=== PATIENT | female | born 1970 | race Two or more races ===

== ENCOUNTER → 2024-05-15 | Outpatient (CLI) | payer MEDICARE, MEDICAID, SELFPAY ==
--- NOTE | 2024-05-15 11:15 | XR_ITS ---
Examination: Breast ultrasound, unilateral, right Date and time of exam: May 15, thousand 25 at 1159 hours INDICATIONS: Sharp right breast pain beginning in the nipple region and extending to the chest wall noticed beginning 6 months ago Technique: Real-time rust scale ultrasonographic imaging performed right breast including all 4 quadrants as well as nipple retroareolar and axillary region. Findings: No cystic or solid masses IMPRESSION: BI-RADS Category 1: Negative study
== END | disposition home or self-care (01) ==
PROVIDERS: PCP Physician Assistant; Referring Provider Physician Assistant; Visit Provider Physician Assistant
DX: N64.4 Mastodynia (principal)
CPT/HCPCS: 76641

== ENCOUNTER → 2024-05-30 | Outpatient (CLI) | payer MEDICARE, MEDICAID, SELFPAY ==
--- NOTE | 2024-05-30 09:15 | XR_ITS ---
Examination: Diagnostic digital mammography, unilateral, right Computer aided detection 3-D breast Tomosynthesis, unilateral Date and time of exam: May 30, 2024 0911 hours INDICATIONS: Outside mammogram 02/07/2024 2 cm focal asymmetry lower outer quadrant right breast Technique: Nonmagnified MLO, CC views of the right breast have been obtained, reconstructed from 3-D Tomosynthesis images. R2 computer aided detection program utilized for evaluation of suspicious masses and/or abnormal calcifications. 3-D Tomosynthesis images obtained. Findings: Scattered areas of fibroglandular density Focal asymmetry remains, 24 mm upper outer right breast posterior depth Impression: BI-RADS category 3: Probably benign findings Recommend 1 additional 6 month right mammogram follow-up to document stability of focal asymmetry described above
== END | disposition home or self-care (01) ==
LOC: CDIM 09:00
PROVIDERS: Referring Provider Physician Assistant; Visit Provider Physician Assistant
DX: R92.333 Mammographic heterogeneous density, bilateral breasts (principal); N64.89 Other specified disorders of breast
CPT/HCPCS: 77061; 77065; G0279